=== PATIENT | female | born 1960 | race Caucasian/White ===

== ENCOUNTER → 2016-11-15 | Outpatient (CLI) | payer OTHER ==
[~2016-11-15] MED LIST: ASPIR 8181 M1 PO; AZITHROMYCIN500 M1 PO; CEFTIN500 MG PO; DELTASONE20 M1 PO; LISINOPRIL-HCT1 EAC3 PO; LORTAB 5-325 M1 EACH PO; MEDROL DOSEPAK4 MG PO; NEXIUM20 MG PO; PREDNISONE10 MG PO; SERTRALINE HCL100 MG PO; VALIUM5 MG PO; ZITHROMAX500 MG PO; ZOLPIDEM TARTRAT5 MG PO
== END | disposition home or self-care (01) ==
LOC: NUC 08:55
DX: J90 Pleural effusion, not elsewhere classified (principal); M35.9 Systemic involvement of connective tissue, unspecified
CPT/HCPCS: 78306; A9503